=== PATIENT | male | born 1975 | race Caucasian/White ===

== ENCOUNTER 2017-02-03 18:56 | Emergency (ER) | payer OTHER ==
[~2017-02-03] VITALS: Ht 185.4 cm; Wt 74.0 kg
[~2017-02-03 18:56] MED LIST: DICL50 PO; LORTA5 PO
[2017-02-03 19:19] VITALS: BP 132/85; PULSE 86; RESP 20; TEMP 98.6; O2SAT 99
--- NOTE | 2017-02-03 20:44 | PD ---
HPI Chief Complaint: Back/ Neck Pain or Injury Time Seen by Provider: 20:10 Travel History International Travel<30 days: No Contact w/Intl Traveler<30days: No Traveled to known affect area: No History of Present Illness HPI 41-year-old white male presents to emergency department with complains of left lower back pain after lifting something heavy at work today. He states the pain is on the left side. Is moderate in intensity. Worse with bending and moving. Some relief with remaining still. He denies any nausea, vomiting, abdominal pain or urine symptoms. No extremity injury. PFSH Past Medical History Medical History: Denies Significant Hx Tetanus Vaccination: < 5 Years Past Surgical History Surgical History: No Previous Surgery Social History Alcohol Use: No Tobacco Use: No Allergies-Medications (Allergen,Severity, Reaction): Coded Allergies: No Known Allergies (Unverified Adverse Reaction, Unknown, 02/03/17) Reported Meds & Prescriptions Reported Meds & Active Scripts Active Diclofenac Sodium DR (Diclofenac Sodium) 75 Mg Tabdr 75 Mg PO BID Flexeril (Cyclobenzaprine HCl) 10 Mg Tab 10 Mg PO TID Voltaren (Diclofenac Sodium) 50 Mg Tabec 50 Mg PO TID Hydrocodone/Acetaminophen 5 mg/325 mg 1 Tab Tab 1-2 Tab PO Q6 PRN Review of Systems ROS Limitations: Speech Impaired Physical Exam Narrative GENERAL: Well-developed, well-nourished in no acute distress. Nontoxic appearing. HEAD: Normocephalic, atraumatic. EYES: Pupils equal round and reactive. Extraocular motions intact. No scleral icterus. No injection or drainage. ENT: TMs clear without erythema. The external auditory canals clear. Nose: clear . Posterior pharynx is pink and moist. No tonsillar edema or exudate. Uvula midline. Airway patent. NECK: Trachea midline.Supple, nontender, moves head freely. No central bony tenderness or spasm. CARDIOVASCULAR: Regular rate and rhythm without murmurs, gallops, or rubs. RESPIRATORY: Clear to auscultation. Breath sounds equal bilaterally. No wheezes , rales, or rhonchi. GASTROINTESTINAL: Abdomen soft, non-tender, nondistended. No hepato-splenomegaly , or palpable masses. No guarding. EXTREMITIES: No clubbing, cyanosis, or edema. No joint tenderness, effusion, or edema noted. BACK: No central bony tenderness to palpation of the dorsal lumbar spine. Patient has left lower paralumbar muscle tenderness. He sits up in bed at 90. No saddle anesthesia. No gross spasm. Without deformity or crepitance. No flank tenderness. Data Data Last Documented VS Vital Signs Date Time Temp Pulse Resp B/P (MAP) Pulse Ox O2 Delivery O2 Flow Rate FiO2 02/03/17 19:19 98.6 86 20 132/85 (101) 99 Orders Orders Acetamin-Hydrocod 325-5 Mg ([place] 5-325 (02/03/17 20:45) Ibuprofen (Motrin) (02/03/17 20:45) Spine, Lumbar - Ltd (Ap & Lat) (02/03/17 20:51) MDM Medical Decision Making Medical Screen Exam Complete: Yes Emergency Medical Condition: Yes Medical Record Reviewed: Yes Interpretation(s) Lumbar spine: Negative for acute bony injury. No subluxation. Differential Diagnosis MDM: High Differential diagnoses: Fracture, sprain, strain, dislocation, contusion, neurovascular injury Narrative Course X-ray of the lumbar spine is negative for trauma. Patient given Lortab 5 and Motrin 800 mg by mouth. This is acute back strain Diagnosis Primary Impression: acute back strain Patient Instructions: Narcotic given in the ED, General Instructions Departure Forms: Tests/Procedures, Work Release Special Instructions: No work till Monday. Additional Instructions: Rest. Ice for the next 3 days followed by heat . Flexeril and Voltaren. Follow-up with a primary care doctor in one week. Return to the ER for emergencies. Med/Other Pt SpecificInfo: Prescription(s) given Scripts Diclofenac Sodium DR (Diclofenac Sodium DR) 75 Mg Tabdr 75 MG PO BID, #20 TAB 0 Refills Prov: Fermín Zayas MD 02/03/17 Cyclobenzaprine (Flexeril) 10 Mg Tab 10 MG PO TID for Muscle Spasm, #30 TAB 0 Refills Prov: Fermín Zayas MD 02/03/17 Disposition: 01 DISCHARGE HOME Condition: Stable Dwight Griffin Feb 03, 2017 20:44
[2017-02-03] MEDS ORDERED: ACETAMINOPHEN/HYDROcodone 325 MG/5 MG TAB PO ONE (20:45)
[2017-02-03] MEDS ORDERED: IBUPROFEN 800 MG TAB PO ONE (20:45)
[2017-02-03] MEDS ORDERED: DICL75TA PO (20:46)
[2017-02-03] MEDS ORDERED: CYCL10TA PO (20:46)
--- NOTE | 2017-02-03 21:35 | RADRPT ---
EXAM DATE/TIME: 02/03/2017 21:17 [facility] COMPARISON: No previous studies available for comparison. INDICATIONS : Lower back pain, fall. MEDICAL HISTORY : None. SURGICAL HISTORY : None. ENCOUNTER: Initial ACUITY: 1 day PAIN SCORE: 6/10 LOCATION: Left lower back FINDINGS: Two view examination was performed. There are five non-rib bearing vertebral bodies. The vertebral bodies are in normal alignment without evidence of subluxation or scoliosis. The disc spaces are steve ntained. The pedicles are intact. Bony mineralization is normal. No fracture is identified. CONCLUSION: Unremarkable limited examination of the lumbar spine. Lefty Rodney MD on February 03, 2017 at 21:33 Board Certified Radiologist. This report was verified electronically.
== END 2017-02-03 21:52 | disposition home or self-care (01) ==
LOC: NEPK 18:56
DX: S39.012A Strain of muscle, fascia and tendon of lower back, initial encounter (principal); X50.0XXA Overexertion from strenuous movement or load, initial encounter; Y99.0 Civilian activity done for income or pay
CPT/HCPCS: 72100; 99284